=== PATIENT | male | born 1975 | race Caucasian/White ===

== ENCOUNTER 2024-10-16 19:04 | Emergency (ER) | payer MEDICARE, SELFPAY ==
[2024-10-16 19:15] VITALS: BP 114/70; PULSE 77; RESP 17; TEMP 36.9; O2SAT 97; BMI 21.5
--- NOTE | 2024-10-16 19:55 | XRR_ITS ---
PROCEDURE INFORMATION: Exam: XR Chest Exam date and time: 10/16/2024 8:02 PM Age: 49 years old Clinical indication: Other: Syncope; Additional info: Nearsyncope TECHNIQUE: Imaging protocol: Radiologic exam of the chest. Views: 1 view. COMPARISON: No relevant prior studies available. FINDINGS: Lungs: No pulmonary consolidation. Pleural spaces: No pleural effusion or pneumothorax. Heart/Mediastinum: Heart size is within normal limits. Bones/joints: No acute osseous abnormalities are seen. XR/XR chest 1V portable [id number] IMPRESSION: No acute cardiopulmonary disease.
--- NOTE | 2024-10-16 19:57 | ECG_ITS ---
[email or web address] Test Date: 2024-10-16 Pat Name: Harman Alvarado Department: Room: Gender: Male Instructional Leader: : [id number] Requested By: Aj Bynum Order Number: [id number] Rees MD: Ovi Merino M.D. Measurements Intervals [place] Rate: 59 P: 46 UT: 190 QRS: -56 QRSD: 104 T: 1 QT: 387 QTc: 385 Interpretive Statements SINUS BRADYCARDIA LEFT ANTERIOR FASCICULAR BLOCK [QRS AXIS <= -45, QR IN I, RS IN II] MINIMAL VOLTAGE CRITERIA FOR LVH, CONSIDER NORMAL VARIANT [MEETS CRITERIA IN ONE OF: R(aVL), S(V1), R(V5), R(V5/V6)+S(V1)] ANTEROSEPTAL MYOCARDIAL INFARCTION , OF INDETERMINATE AGE [40+ ms Q WAVE IN V1-V4] No previous ECG available for comparison Electronically Signed On 10-18-2024 17:29:28 CDT by Ovi Merino M.D. [email or web address]
--- NOTE | 2024-10-16 19:58 | ED_ITS ---
HPI - Syncope 2 General: Chief Complaint: Syncope Stated Complaint: Almost Blacking Out Time Seen by Provider: 10/16/24 19:15 History of Present Illness: 49-year-old male presents with episode o f near syncope. He reports that he almost blacked out. Patient reports he been having this issues on and off for 3 to 4 months. That he is living between here in [place] and is now down here full- time. That he is just concerned about was going on. He also reports about a 40 pound weight loss that is not intentional. Patient reports a history of unprotected intercourse and wants to be checked for HIV. He denies any IV drug use history. Associated symptoms: Deny abdominal pain, chest pain, fever(s) or nausea Related Data Allergies Allergy/AdvReac Type Severity Reaction Status Date / Time No Known Allergies Allergy Verified 10/16/24 20:13 Review of Systems 2 Const: Reports: change in weight; Denies: fever(s) or chills Card: Denies: chest pain or palpitations Resp: Denies: dyspnea, productive cough or non-productive cough GI: Denies: abdominal pain, nausea or vomiting : Denies: flank pain, difficulty urinating, genital lesions, penile discharge or testicular pain Musc: Denies: neck pain or back pain Physical Exam 2 Const: COMMON NORMALS: no acute distress, patient oriented x3 and alert HENMT: COMMON NORMALS: normocephalic and hearing grossly normal bilaterally HEAD & SCALP: normocephalic Resp: COMMON NORMALS: normal respiratory effort and clear to auscultation bilaterally AUSCULTATION: clear to auscultation bilaterally Cardio: COMMON NORMALS: regular rate and regular rhythm RATE: regular rate RHYTHM: regular rhythm GI: COMMON NORMALS: Soft to palpation and non-tender PALPATION: Yes Soft to palpation Neuro: COMMON NORMALS: patient oriented x3, CN's II-XII intact bilaterally, moves all extremities, no focal motor deficits, no sensory deficits noted and gait normal SENSORIUM/ORIENTATION: Yes alert Psych: COMMON NORMALS: mental status grossly normal, Normal thought process present, cooperative, normal affect and speech normal SPEECH: Yes normal speech THOUGHT PROCESS: Normal thought process present Skin: COMMON NORMALS: no rashes or lesions noted GENERAL SKIN EXAM: no rashes or lesions noted Course 2 Vital Signs: Vital signs: Vital Signs Temperature 98.5 F 10/16/24 19:15 Pulse Rate 78 10/16/24 20:39 Respiratory Rate 16 10/16/24 20:39 Blood Pressure 129/80 10/16/24 20:39 Pulse Oximetry 96 10/16/24 20:39 Oxygen Delivery Me thod Room Air 10/16/24 20:39 MDM - Syncope Medical Decision Making Diagnostic studies were ordered reviewed and showed no significant acute findings. Discussed with patient need to establish care with a primary care provider for further evaluation of his weight loss and occasional near syncope this been going on for months. The patient with negative troponin negative EKG, negative chest x-ray. Patient with no significant findings on physical exam. He is stable and discharged home. Lab Data 10/16/24 20:13 10/16/24 20:13 Radiology Impressions Chest X-Ray 10/16/24 19:55 IMPRESSION: No acute cardiopulmonary disease. Laboratory Results WBC 12.01 10^3/uL (3.29-11.43) H 10/16/24 20:13 RBC 4.34 10^6/uL (3.85-5.65) 10/16/24 20:13 Hgb 14.50 g/dL (11.27-16.99) 10/16/24 20:13 Hct 41.8 % (37-53) 10/16/24 20:13 MCV 96.3 fl (82-101) 10/16/24 20:13 MCH 33.4 pg (27-33) H 10/16/24 20:13 MCHC 34.7 g/dL (30-55) 10/16/24 20:13 RDW 12.2 % (12.1-15.1) 10/16/24 20:13 Plt Count 195 10^3/cmm (157-399) 10/16/24 20:13 MPV 9.3 fL (7.4-10.4) 10/16/24 20:13 Neut % (Auto) 72.8 % 10/16/24 20:13 Lymph % (Auto) 17.0 % 10/16/24 20:13 Glenn % (Auto) 6.7 % 10/16/24 20:13 Eos % (Auto) 2.7 % 10/16/24 20:13 Baso % (Auto) 0.5 % 10/16/24 20:13 Neut # (Auto) 8.75 10^3/uL (1.8-7.7) H 10/16/24 20:13 Lymph # (Auto) 2.0 10^3/uL (0.8-4.8) 10/16/24 20:13 Glenn # (Auto) 0.8 10^3/uL (0.2-0.9) 10/16/24 20:13 Eos # (Auto) 0.3 10^3/uL (0.0-0.8) 10/16/24 20:13 Baso # (Auto) 0.1 10^3/uL (0.0-0.1) 10/16/24 20:13 Nucleated RBC % (auto) 0 % 10/16/24 20:13 Nucleated RBCs # 0.0 /100WBC 10/16/24 20:13 Sodium 141 mmol/L (136-145) 10/16/24 20:13 Potassium 3.9 mmol/L (3.5-5.1) 10/16/24 20:13 Chloride 104 mmol/L (98-107) 10/16/24 20:13 Carbon Dioxide 25 mmol/L (22-29) 10/16/24 20:13 Anion Gap 15.9 (5-19) 10/16/24 20:13 BUN 12 mg/dL (6-20) 10/16/24 20:13 Creatinine 0.7 mg/dL (0.7-1.2) 10/16/24 20:13 GFR Calculation 119.9 mL/min (90-130) 10/16/24 20:13 Glucose 99 mg/dL (65-115) 10/16/24 20:13 Calculated Osmolality 292 mOsm/kg (285-295) 10/16/24 20:13 Calcium 9.4 mg/dL (8.5-10.5) 10/16/24 20:13 Magnesium 2.0 mg/dL (1.7-2.3) 10/16/24 20:13 Total Bilirubin 0.5 mg/dL (0.15-1.2) 10/16/24 20:13 AST 21 U/L (0-40) 10/16/24 20:13 ALT 14 U/L (0-41) 10/16/24 20:13 Alkaline Phosphatase 84 U/L (40-130) 10/16/24 20:13 Troponin T Baseline < 6 ng/L (0-15) 10/16/24 20:13 Total Protein 7.1 g/dL (6.6-8.7) 10/16/24 20:13 Albumin 4.3 g/dL (3.5-5.2) 10/16/24 20:13 Globulin 2.8 g/dL (1.3-4.6) 10/16/24 20:13 TSH 3.82 uIU/mL (0.27-4.20) 10/16/24 20:13 Urine Color Dark yellow (Yellow) A 10/16/24 20:50 Urine Appearance Clear (CLEAR) 10/16/24 20:50 Urine pH 6.0 (5-7) 10/16/24 20:50 Ur Specific [place] 1.031 (1.005-1.030) H 10/16/24 20:50 Urine Protein Negative (Negative) 10/16/24 20:50 Urine Glucose (UA) Negative (Normal) 10/16/24 20:50 Urine Ketones Trace (Negative) 10/16/24 20:50 Urine Blood Negative (Negative) 10/16/24 20:50 Urine Nitrate Negative (Negative) 10/16/24 20:50 Urine Bilirubin Negative (Negative) 10/16/24 20:50 Urine Urobilinogen 1.0 mg/dL (Negative) 10/16/24 20:50 Ur Leukocyte Esterase Negative (Negative) 10/16/24 20:50 Urine RBC 0-2 /hpf (0-2) 10/16/24 20:50 Urine WBC 0-5 /hpf (0-5) 10/16/24 20:50 Ur Squamous Epith Cells 0-5 /hpf (0-5) 10/16/24 20:50 Amorphous Sediment Not Reportable 10/16/24 20:50 Urine Bacteria None seen /hpf (NONE) 10/16/24 20:50 Hyaline Casts 0.40 /lpf 10/16/24 20:50 Urine Opiates Screen Negative ng/mL (Negative) 10/16/24 20:50 Ur Barbiturates Screen Negative ng/mL (Negative) 10/16/24 20:50 Ur Phencyclidine Scrn Negative ng/mL (Negative) 10/16/24 20:50 Ur Amphetamines Screen Negative ng/mL (Negative) 10/16/24 20:50 U Benzodiazepines Scrn Positive ng/mL (Negative) H 10/16/24 20:50 Urine Cocaine Screen Negative ng/mL (Negative) 10/16/24 20:50 U Marijuana (THC) Screen Negative ng/mL (Negative) 10/16/24 20:50 HIV 1&2 Ab & HIV 1 Ag Non-reactive (Non-Reactiv) 10/16/24 20:13 HIV 1&2 Antibody Non-reactive (Non-Reactiv) 10/16/24 20:13 All radiology interpretation(s) finalized by discharge Discharge Plan Discharge Patient Disposition: Home Clinical Impression: Near syncope, Abnormal weight loss Condition: Stable Discharge Orders: Discharge ED (Routine); Ordered 10/16/24 Ordered By: Aj Bynum Discharge Diet: Usual diet Discharge Activity: Increase activity as tolerated Patient Instructions: Near Syncope (ED), Opioid Safety, Pain Management Activity Restrictions/Additional Instructions: Please establish care with a primary care provider for further evaluation of your weight loss and near syncope events. Sure you are drinking plenty of fluids. Return to the ER with any concerns. Print Language: Grenadian Coding Level of Care Code ED [employer] Developer for John Peterson
[2024-10-16 20:20] LABS: Basophils # 0.1 10^3/uL (0.0-0.1); Basophils % 0.5 %; Eosinophils # 0.3 10^3/uL (0.0-0.8); Eosinophils % 2.7 %; Hematocrit 41.8 % (37-53); Mean Corpuscular HGB Conc 34.7 g/dL (30-55); Mean Corpuscular Hemoglobin 33.4 pg (27-33); Mean Corpuscular Volume 96.3 fl (82-101); Mean Platelet Volume 9.3 fL (7.4-10.4); Monocytes # 0.8 10^3/uL (0.2-0.9); Monocytes % 6.7 %; Neutrophils # 8.75 10^3/uL (1.8-7.7); Neutrophils % 72.8 %; Nucleated Red Blood Cells % 0 %; Platelet Count 195 10^3/cmm (157-399); Red Blood Count 4.34 10^6/uL (3.85-5.65); Red Cell Distribution Width 12.2 % (12.1-15.1); White Blood Count 12.01 10^3/uL (3.29-11.43)
[2024-10-16 20:39] VITALS: BP 129/80; PULSE 78; RESP 16; O2SAT 96
[2024-10-16 20:40] LABS: Troponin(5th) Baseline < 6 ng/L (0-15)
[2024-10-16 20:51] LABS: HIV 1 & 2 Antibody Non-Reactive (Non-Reactiv); HIV 1 & 2 Antigen Non-Reactive (Non-Reactiv)
[2024-10-16 21:11] LABS: Alanine Aminotransferase 14 U/L (0-41); Albumin Level 4.3 g/dL (3.5-5.2); Alkaline Phosphatase 84 U/L (40-130); Anion Gap 15.9 (5-19); Aspartate Amino Transferase 21 U/L (0-40); Blood Urea Nitrogen 12 mg/dL (6-20); Calcium 9.4 mg/dL (8.5-10.5); Carbon Dioxide 25 mmol/L (22-29); Chloride 104 mmol/L (98-107); Creatinine Clr Calc Pharmacy 132.2208; Globulin 2.8 g/dL (1.3-4.6); Glomerular Filtration Rate 119.9 mL/min (90-130); Glucose 99 mg/dL (65-115); Osmolality Calculated 292 mOsm/kg (285-295); Potassium 3.9 mmol/L (3.5-5.1); Sodium 141 mmol/L (136-145); Total Bilirubin 0.5 mg/dL (0.15-1.2); Total Protein 7.1 g/dL (6.6-8.7)
[2024-10-16 21:21] LABS: Bilirubin Urine Negative (Negative); Blood Urine Negative (Negative); Glucose Urine UA Negative (Normal); Ketones Urine Trace (Negative); Leukocyte Esterase Urine Negative (Negative); Nitrate Urine Negative (Negative); Protein Urine Negative (Negative); Urine Appearance Clear (CLEAR); Urine Color Dark Yellow (Yellow)
[2024-10-16 21:26] LABS: Add Urine Microscopic? YES; Bacteria Urine None Seen /hpf; RBC Urine 0-2 /hpf (0-2); Squamous Epithelial Cell Urine 0-5 /hpf (0-5); WBC Urine 0-5 /hpf (0-5)
[2024-10-16 21:28] LABS: Amphetamines Screen Urine Negative (Negative); Barbiturates Screen Urine Negative (Negative); Benzodiazepines Screen Urine Positive (Negative); Cocaine Screen Urine Negative (Negative); Opiate Screen Urine Negative (Negative); PCP Screen Urine Negative (Negative); THC Screen Urine Negative (Negative)
[2024-10-16 21:33] LABS: Specific Gravity, Urine 1.031 (1.005-1.030)
[2024-10-16 21:33] LABS: Thyroid Stimulating Hormone 3.82 uIU/mL (0.27-4.20)
[2024-10-16 21:50] VITALS: BP 134/83; PULSE 56; RESP 16; O2SAT 98
== END 2024-10-16 21:51 | disposition home or self-care (01) ==
PROVIDERS: Emergency Provider Student in an Organized Health Care Education/Training Program
DX: R55 Syncope and collapse (principal); R63.4 Abnormal weight loss
CPT/HCPCS: 36415; 71045; 80053; 80306; 81001; 83735; 84443; 84484; 85025; 87806; 93005; 99285